=== PATIENT | male | born 1980 | race Two or more races ===

== ENCOUNTER 2022-07-15 22:14 | Emergency (ER) | payer OTHER ==
[~2022-07-15] VITALS: Ht 165.1 cm; Wt 78.0 kg
[2022-07-15 23:18] VITALS: BP 129/86
[2022-07-16] MEDS ORDERED: IBUPROFEN 800 MG TAB PO ONE (01:45)
[2022-07-16] MEDS ORDERED: IBUP800T26 PO (01:54)
== END 2022-07-16 02:10 | disposition home or self-care (01) ==
LOC: ER 22:14
DX: S93.402A Sprain of unspecified ligament of left ankle, initial encounter (principal); X50.1XXA Overexertion from prolonged static or awkward postures, initial encounter; Y93.89 Activity, other specified; Y92.69 Other specified industrial and construction area as the place of occurrence of the external cause; Y99.8 Other external cause status
CPT/HCPCS: 73610